=== PATIENT | female | born 1930 | race Caucasian/White ===

== ENCOUNTER → 2018-08-23 | Outpatient (CLI) | payer MEDICARE ==
[~2018-08-23] MED LIST: AEC81 PO; ATOR40TA69 PO; CHOL100040 PO; DOXE3TAB3 PO; ESOM20CA39 PO; LORA1TAB3 PO; METF-446 PO; METO-408 PO; MULT-1103 PO; PARO40TA72 PO; QUET50TA14 PO; VALS1TAB75 PO; WARF-57 PO; [UNRECOGNIZED DRUG - OTHER] PO
== END | disposition home or self-care (01) ==
LOC: SHCH 12:47
PROVIDERS: ATTEND Internal Medicine Cardiovascular Disease
DX: I35.0 Nonrheumatic aortic (valve) stenosis (principal); R01.1 Cardiac murmur, unspecified; Z95.1 Presence of aortocoronary bypass graft
CPT/HCPCS: 93306

== ENCOUNTER → 2018-08-29 | Outpatient (CLI) | payer MEDICARE | END | disposition home or self-care (01) | LOC: SHCH 14:29 | PROVIDERS: ATTEND Internal Medicine Cardiovascular Disease | DX: I65.23 Occlusion and stenosis of bilateral carotid arteries (principal); I25.10 Atherosclerotic heart disease of native coronary artery without angina pectoris | CPT/HCPCS: 93880 ==

== ENCOUNTER → 2018-08-31 | Outpatient (CLI) | payer MEDICARE | END | disposition home or self-care (01) | LOC: SLP 20:36 | PROVIDERS: ATTEND Internal Medicine Cardiovascular Disease | DX: G47.33 Obstructive sleep apnea (adult) (pediatric) (principal); G47.9 Sleep disorder, unspecified; I10 Essential (primary) hypertension; R51 Headache; E11.9 Type 2 diabetes mellitus without complications; F41.9 Anxiety disorder, unspecified; E55.9 Vitamin D deficiency, unspecified; R07.9 Chest pain, unspecified | CPT/HCPCS: 95810 ==

== ENCOUNTER 2018-09-03 17:58 | Emergency (ER) | payer MEDICARE ==
[2018-09-03] MEDS ORDERED: IOHEXOL-350 75 ML VIAL IV ONE (18:26)
[2018-09-03] MEDS ORDERED: ONDANSETRON HCL 4 MG/2 ML VIAL ONE (18:29)
[2018-09-03] MEDS ORDERED: MORPHINE SULFATE 4 MG/1ML SYG ONE ×2 (18:30→20:11)
[2018-09-03 18:47] LABS: BASOPHILS % (AUTO) 0.6 % (0.0-5.0); EOSINOPHILS % (AUTO) 3.7 % (0.0-8.0); HEMATOCRIT 37.7 % (36-48); LYMPHOCYTES % (AUTO) 14.2 % (21.0-51.0); MEAN CORPUSCULAR HEMOGLOBIN 28.9 pg (27.0-33.0); MEAN CORPUSCULAR HGB CONC 32.8 g/dL (32.0-36.0); MEAN CORPUSCULAR VOLUME 88.1 fL (79-99); MONOCYTES % (AUTO) 9.9 % (3.0-13.0); NEUTROPHILS % (AUTO) 71.6 % (40.0-77.0); NUCLEATED RED BLOOD CELLS 0.1 % (0.0-0.19); PLATELET COUNT (AUTO) 249 K/uL (130-400); RED BLOOD CELL COUNT(AUTO) 4.28 MIL/uL (4.00-5.50); RED CELL DISTRIBUTION WIDTH 13.1 % (11.0-15.5); WHITE BLOOD COUNT (AUTO) 9.4 K/uL (4.8-10.8)
[2018-09-03 18:49] LABS: CREATININE 2.2 mg/dL (0.5-1.5); POTASSIUM 5.3 mmol/L (3.5-5.1)
[2018-09-03 18:53] LABS: ALBUMIN 3.5 g/dL (3.5-5.0); BILIRUBIN,TOTAL 0.4 mg/dL (0.2-1.0); TOTAL PROTEIN, SERUM 7.5 g/dL (6.0-8.3)
[2018-09-03] MEDS ORDERED: SODIUM CHLORIDE 0.9% 1000ML 1,000 ML IV ONE (19:18)
[2018-09-03] MEDS ORDERED: KETOROLAC TROMETHAMINE 30MG/ML ONE (20:10)
== END 2018-09-03 20:49 | disposition home or self-care (01) ==
LOC: EDH 17:58
DX: K85.90 Acute pancreatitis without necrosis or infection, unspecified (principal); N28.1 Cyst of kidney, acquired; N28.9 Disorder of kidney and ureter, unspecified; E86.0 Dehydration; E78.00 Pure hypercholesterolemia, unspecified; I10 Essential (primary) hypertension; I25.10 Atherosclerotic heart disease of native coronary artery without angina pectoris; Z88.6 Allergy status to analgesic agent; Z98.890 Other specified postprocedural states
CPT/HCPCS: 36415; 74176; 80053; 83690; 85025; 96361; 96374; 96375; 96376; 99284; J2270 ×2; J2405; J7030; J1885; Q9967

== ENCOUNTER → 2018-09-15 | Outpatient (CLI) | payer MEDICARE | END | disposition home or self-care (01) | LOC: RAH 09-14 09:34 | PROVIDERS: ATTEND Internal Medicine | DX: N28.1 Cyst of kidney, acquired (principal) | CPT/HCPCS: 76700 ==

== ENCOUNTER → 2018-10-02 | Outpatient (CLI) | payer MEDICARE | END | disposition home or self-care (01) | LOC: SLP 20:30 | PROVIDERS: ATTEND Internal Medicine Cardiovascular Disease | DX: G47.33 Obstructive sleep apnea (adult) (pediatric) (principal); I10 Essential (primary) hypertension; E11.9 Type 2 diabetes mellitus without complications; F41.9 Anxiety disorder, unspecified; R53.83 Other fatigue; M25.549 Pain in joints of unspecified hand | CPT/HCPCS: 95811 ==

== ENCOUNTER → 2018-11-08 | Outpatient (CLI) | payer MEDICARE | END | disposition home or self-care (01) | LOC: RAH 11:17 | PROVIDERS: ATTEND Internal Medicine Cardiovascular Disease | CPT/HCPCS: 72141 ==

== ENCOUNTER → 2019-08-28 | Outpatient (CLI) | payer MEDICARE ==
[~2019-08-28] MED LIST changes: -QUET50TA14 PO; +QUET50TA15 PO
== END | disposition home or self-care (01) ==
LOC: SHCH 10:00
PROVIDERS: ATTEND Internal Medicine Cardiovascular Disease
DX: I08.3 Combined rheumatic disorders of mitral, aortic and tricuspid valves (principal); I27.20 Pulmonary hypertension, unspecified; R01.1 Cardiac murmur, unspecified; R09.89 Other specified symptoms and signs involving the circulatory and respiratory systems; Z95.1 Presence of aortocoronary bypass graft
CPT/HCPCS: 93306; 93880

== ENCOUNTER 2020-02-19 15:34 | Observation (INO) | payer MEDICARE ==
[2020-02-18 20:30] VITALS: BP 146/60
[~2020-02-19] VITALS: Ht 157.5 cm; Wt 62.2 kg
[~2020-02-19 15:34] MED LIST changes: -VALS1TAB75 PO; +VALS1TAB76 PO
[2020-02-19] MEDS ORDERED: DILTIAZEM HCL 5 MG/ML 10 ML VIAL IV ONE (16:07)
[2020-02-19 16:09] LABS: EOSINOPHILS % (AUTO) 6.7 % (0.0-8.0); HEMATOCRIT 24.9 % (36-48); LYMPHOCYTES % (AUTO) 20.4 % (21.0-51.0); MEAN CORPUSCULAR HEMOGLOBIN 24.2 pg (27.0-33.0); MEAN CORPUSCULAR HGB CONC 31.3 g/dL (32.0-36.0); MEAN CORPUSCULAR VOLUME 77.3 fL (79-99); MONOCYTES % (AUTO) 11.7 % (3.0-13.0); NEUTROPHILS % (AUTO) 59.9 % (40.0-77.0); PLATELET COUNT (AUTO) 426 K/uL (130-400); RED BLOOD CELL COUNT(AUTO) 3.22 MIL/uL (4.00-5.50); RED CELL DISTRIBUTION WIDTH 13.7 % (11.0-15.5); WHITE BLOOD COUNT (AUTO) 8.7 K/uL (4.8-10.8)
[2020-02-19 16:19] LABS: POTASSIUM 5.3 mmol/L (3.5-5.1)
[2020-02-19 16:22] LABS: INR 1.58 (0.85-1.15); PARTIAL THROMBOPLASTIN TIME 64.1 SEC (26.3-35.5); PROTHROMBIN TIME 16.8 SEC (9.6-11.6)
[2020-02-19 16:23] LABS: ALBUMIN 3.3 g/dL (3.5-5.0); BILIRUBIN,TOTAL 0.3 mg/dL (0.2-1.0); TOTAL PROTEIN, SERUM 7.6 g/dL (6.0-8.3)
[2020-02-19] MEDS ORDERED: ASPIRIN 325 MG TABLET ONE (16:24)
[2020-02-19] MEDS ORDERED: DILTIAZEM HCL 125 MG/25 ML VIAL IV ONE (16:30)
[2020-02-19] MEDS ORDERED: SODIUM CHLORIDE 0.9% 100 ML IV ONE (16:31)
[2020-02-19 16:45] LABS: RAPID GROUP A STREP NEGATIVE (NEGATIVE)
[2020-02-19] MEDS ORDERED: 1/2 NORMAL SALINE 1,000 ML IV ONE ×2 (17:38→23:36)
[2020-02-19] MEDS: IRON SUCROSE COMPLEX 200 MG in SODIUM CHLORIDE 0.9% 100 ML IVP SCH (17:45)
[2020-02-19] MEDS ORDERED: IRON SUCROSE COMPLEX 100 MG in SODIUM CHLORIDE 0.9% 100 ML IVP SCH (18:00)
[2020-02-19] MEDS ORDERED: METF-446 PO (22:24)
[2020-02-19] MEDS ORDERED: QUET50TA79 PO (22:24)
[2020-02-19] MEDS ORDERED: RIVA20TA PO (22:24)
[2020-02-19] MEDS ORDERED: EMPA25TA PO (22:24)
[2020-02-19] MEDS ORDERED: ANTI1CAP5 PO (22:24)
[2020-02-19] MEDS ORDERED: METR45GE TP (22:24)
[2020-02-19] MEDS ORDERED: VALS1TAB76 PO (22:24)
[2020-02-19] MEDS ORDERED: DOXE6TAB3 PO (22:24)
[2020-02-19] MEDS ORDERED: METRONIDAZOLE 45 GM TP SCH (22:30)
[2020-02-20] VITALS (7 sets, daily range): BP systolic 104–156; BP diastolic 52–76
[2020-02-20 04:24] LABS: HEMOGLOBIN A1C 6.8 % (4.0-6.0)
[2020-02-20 04:33] LABS: BILIRUBIN,TOTAL 0.3 mg/dL (0.2-1.0); CREATININE 1.7 mg/dL (0.5-1.5); TOTAL PROTEIN, SERUM 6.7 g/dL (6.0-8.3)
[2020-02-20 04:48] LABS: HEMATOCRIT 21.9 % (36-48); MEAN CORPUSCULAR HEMOGLOBIN 23.6 pg (27.0-33.0); MEAN CORPUSCULAR HGB CONC 30.6 g/dL (32.0-36.0); MEAN CORPUSCULAR VOLUME 77.1 fL (79-99); RED BLOOD CELL COUNT(AUTO) 2.84 MIL/uL (4.00-5.50); RED CELL DISTRIBUTION WIDTH 13.8 % (11.0-15.5)
--- NOTE | 2020-02-20 06:00 | NUR ---
Dr. Chapin paged regarding H and H results. 0630- no return call/dr. chapin here, appraised of lab result. orders received.
[2020-02-20] MEDS: PANTOPRAZOLE SODIUM 40 MG TABLET.DR PO SCH (07:01)
[2020-02-20 07:10] LABS: RETICULOCYTE % (AUTO) 1.56 % (0.42-2.23)
[2020-02-20] MEDS: INSULIN HUMULIN R 100 UNIT/ML 3ML SQ SCH ×4 (07:30→21:00)
[2020-02-20] MEDS: METOPROLOL SUCCINATE 50 MG TAB.SR.24H PO SCH ×2 (08:14→20:31)
[2020-02-20] MEDS: MULTIVITAMIN WITH MINERALS TABLET PO SCH (08:14)
--- NOTE | 2020-02-20 08:37 | NUR ---
Assignment changed, report given to SE Amor
[2020-02-20] MEDS ORDERED: [UNRECOGNIZED DRUG - OTHER] PO SCH (09:00)
[2020-02-20] MEDS ORDERED: QUETIAPINE FUMARATE 50 MG PO SCH (09:00)
[2020-02-20] MEDS ORDERED: HYDROCHLOROTHIAZIDE PO SCH (09:00)
[2020-02-20] MEDS ORDERED: EMPAGLIFLOZIN 25 MG PO SCH (09:00)
[2020-02-20] MEDS ORDERED: NON-FORMULARY MEDICATION 1 EACH (Metformin HCl 1,000 MG) PO SCH (09:00)
[2020-02-20] MEDS ORDERED: DOXEPIN HCL 6 MG PO SCH (09:00)
[2020-02-20] MEDS ORDERED: VALSARTAN PO SCH (09:00)
[2020-02-20] MEDS ORDERED: SODIUM CHLORIDE 0.9% 250 ML IV ONE (09:02)
--- NOTE | 2020-02-20 11:23 | NUR ---
DCP CM met with pt discussed dc plans. Pt is independent prior to admission, lives at home alone. Pt has shower chair, cane, walker, provider 5hrs/day. Denies any other equipments/services. Pt verbalized she used to have cpap but hardly uses it, so it was discontinued. Had [employer] in the past but was discharged. Feels safe to go back home, still drives, provider able to assists with transportation and needs as necessary. DC plan to home once stable. Addendum: 02/20/20 at 1126 by MADDISON DAMIAN LVN CM Amended: Links added.
--- NOTE | 2020-02-20 12:36 | NUR ---
1215 patient given BPCI Letter.
[2020-02-20] MEDS ORDERED: RIVAROXABAN 20 MG TABLET PO SCH (17:00)
[2020-02-20] MEDS: IRON SUCROSE COMPLEX 200 MG in SODIUM CHLORIDE 0.9% 100 ML IVP SCH (17:59)
[2020-02-20] MEDS ORDERED: PAROXETINE HCL 20 MG TABLET PO SCH (21:00)
[2020-02-20] MEDS ORDERED: ATORVASTATIN CALCIUM 40 MG TABLET PO SCH (21:00)
[2020-02-21 03:45] VITALS: BP 139/60
[2020-02-21] MEDS: INSULIN HUMULIN R 100 UNIT/ML 3ML SQ SCH (06:54)
[2020-02-21] MEDS: PANTOPRAZOLE SODIUM 40 MG TABLET.DR PO SCH (07:18)
[2020-02-21 07:35] VITALS: BP 151/82
[2020-02-21] MEDS: METOPROLOL SUCCINATE 50 MG TAB.SR.24H PO SCH (09:00)
[2020-02-21] MEDS: MULTIVITAMIN WITH MINERALS TABLET PO SCH (09:00)
[2020-02-21 11:34] VITALS: BP 149/69
== END 2020-02-21 13:33 | disposition home or self-care (01) ==
LOC: EDH 15:34 → EDHIP 17:00 → 4CH 21:05
PROVIDERS: ADMIT Internal Medicine; ATTEND Internal Medicine
DX: I48.0 Paroxysmal atrial fibrillation (principal); I13.0 Hypertensive heart and chronic kidney disease with heart failure and stage 1 through stage 4 chronic kidney disease, or unspecified chronic kidney disease; I50.9 Heart failure, unspecified; N18.9 Chronic kidney disease, unspecified; E11.22 Type 2 diabetes mellitus with diabetic chronic kidney disease; E78.5 Hyperlipidemia, unspecified; I25.10 Atherosclerotic heart disease of native coronary artery without angina pectoris; I25.2 Old myocardial infarction; D50.9 Iron deficiency anemia, unspecified; E03.9 Hypothyroidism, unspecified; F03.90 Unspecified dementia, unspecified severity, without behavioral disturbance, psychotic disturbance, mood disturbance, and anxiety; Z79.01 Long term (current) use of anticoagulants; Z95.1 Presence of aortocoronary bypass graft
CPT/HCPCS: 36415 ×2; 36430; 71045; 80053 ×2; 82270; 82948 ×6; 83036; 83880; 84443; 84484; 85025; 85027; 85045; 85610; 85730; 86850; 86900; 86901; 86922 ×2; 87804 ×2; 87880; 93005; 96361 ×2; 96365; 99291; G0378 ×8; J1756; J3490 ×2; J7050; P9016

== ENCOUNTER → 2020-05-20 | Outpatient (CLI) | payer MEDICARE ==
[~2020-05-20] MED LIST changes: -AEC81 PO; +ANTI1CAP5 PO; -CHOL100040 PO; -DOXE3TAB3 PO; +DOXE6TAB3 PO; +EMPA25TA PO; -LORA1TAB3 PO; +METR45GE TP; -QUET50TA15 PO; +QUET50TA79 PO; +RIVA20TA PO; -WARF-57 PO; -[UNRECOGNIZED DRUG - OTHER] PO
== END | disposition home or self-care (01) ==
LOC: OIH 10:49
PROVIDERS: ATTEND Internal Medicine
DX: R06.02 Shortness of breath (principal)
CPT/HCPCS: 71046

== ENCOUNTER → 2020-10-21 | Outpatient (CLI) | payer MEDICARE | END | disposition home or self-care (01) | LOC: SHCH 10:41 | PROVIDERS: ATTEND Internal Medicine Cardiovascular Disease | DX: I70.298 Other atherosclerosis of native arteries of extremities, other extremity (principal); I10 Essential (primary) hypertension | CPT/HCPCS: 93925 ==

== ENCOUNTER 2020-11-28 12:02 | Observation (INO) | payer MEDICARE ==
[2020-11-28] MEDS ORDERED: METOPROLOL TARTRATE 1 MG/ML 5ML VIAL IV ONE ×3 (12:27→13:11)
[2020-11-28 12:33] LABS: BASOPHILS % (AUTO) 0.7 % (0.0-5.0); EOSINOPHILS % (AUTO) 3.6 % (0.0-8.0); HEMATOCRIT 34.6 % (36-48); LYMPHOCYTES % (AUTO) 22.4 % (21.0-51.0); MEAN CORPUSCULAR HEMOGLOBIN 27.7 pg (27.0-33.0); MEAN CORPUSCULAR HGB CONC 32.4 g/dL (32.0-36.0); MEAN CORPUSCULAR VOLUME 85.6 fL (79-99); MONOCYTES % (AUTO) 10.1 % (3.0-13.0); PLATELET COUNT (AUTO) 245 K/uL (130-400); RED BLOOD CELL COUNT(AUTO) 4.04 MIL/uL (4.00-5.50); RED CELL DISTRIBUTION WIDTH 14.4 % (11.0-15.5); WHITE BLOOD COUNT (AUTO) 8.1 K/uL (4.8-10.8)
[2020-11-28] MEDS ORDERED: DILTIAZEM 125MG+100 ML NS 125 ML IV SCH (12:45)
[2020-11-28] MEDS ORDERED: 0.9%NACL 10ML VIAL IVP PRN (12:45)
[2020-11-28 12:51] LABS: INR 1.83 (0.85-1.15); PROTHROMBIN TIME 18.9 SEC (9.6-11.6)
[2020-11-28 12:52] LABS: PARTIAL THROMBOPLASTIN TIME 63.2 SEC (26.3-35.5)
[2020-11-28 12:59] LABS: CREATININE 1.9 mg/dL (0.5-1.5); POTASSIUM 5.1 mmol/L (3.5-5.1)
[2020-11-28 13:03] LABS: ALBUMIN 3.6 g/dL (3.5-5.0); BILIRUBIN,TOTAL 0.5 mg/dL (0.2-1.0); TOTAL PROTEIN, SERUM 7.5 g/dL (6.0-8.3)
[2020-11-28 16:19] VITALS: BP 124/77
[2020-11-28 19:00] VITALS: BP 146/57
[2020-11-28] MEDS ORDERED: DILTIAZEM 25MG INJ IVP PRN (19:00)
[2020-11-28] MEDS ORDERED: PHARMACY COMMUNICATION MISC SCH (19:00)
[2020-11-28] MEDS ORDERED: DILTIAZEM 125 MG/25 ML INJ 125 MG in 0.9%NACL 100ML 100 ML IV PRN (19:00)
[2020-11-28] MEDS: INSULIN HUMULIN R 100 UNIT/ML 3ML SQ SCH (21:00)
[2020-11-29] VITALS: BP 167/61
[2020-11-29 04:00] VITALS: BP 170/59
[2020-11-29 05:57] LABS: BASOPHILS % (AUTO) 0.8 % (0.0-5.0); HEMATOCRIT 33.2 % (36-48); MEAN CORPUSCULAR HEMOGLOBIN 27.5 pg (27.0-33.0); MEAN CORPUSCULAR HGB CONC 31.9 g/dL (32.0-36.0); MEAN CORPUSCULAR VOLUME 86.2 fL (79-99); MONOCYTES % (AUTO) 9.9 % (3.0-13.0); NEUTROPHILS % (AUTO) 55.2 % (40.0-77.0); PLATELET COUNT (AUTO) 241 K/uL (130-400); RED BLOOD CELL COUNT(AUTO) 3.85 MIL/uL (4.00-5.50); RED CELL DISTRIBUTION WIDTH 14.4 % (11.0-15.5); WHITE BLOOD COUNT (AUTO) 7.7 K/uL (4.8-10.8)
[2020-11-29 06:22] LABS: ALBUMIN 3.5 g/dL (3.5-5.0); BILIRUBIN,TOTAL 0.5 mg/dL (0.2-1.0); POTASSIUM 4.1 mmol/L (3.5-5.1); TOTAL PROTEIN, SERUM 7.2 g/dL (6.0-8.3)
[2020-11-29] MEDS: INSULIN HUMULIN R 100 UNIT/ML 3ML SQ SCH ×2 (06:34→11:30)
[2020-11-29 08:00] VITALS: BP 154/75
[2020-11-29] MEDS ORDERED: METOPROLOL TARTRATE 25 MG TAB PO SCH (09:00)
[2020-11-29] MEDS ORDERED: DRON400T7 PO (10:01)
[2020-11-29] MEDS ORDERED: DRONEDARONE HYDROCHLORIDE 400 MG TABLET PO SCH (10:02)
[2020-11-29 11:39] VITALS: BP 166/84
== END 2020-11-29 13:44 | disposition home or self-care (01) ==
LOC: EDH 12:02 → EDHIP 12:03 → INTOOBSV 12:03 → 4AH 15:28
PROVIDERS: ADMIT Internal Medicine; ATTEND Internal Medicine
DX: I48.20 Chronic atrial fibrillation, unspecified (principal); E11.22 Type 2 diabetes mellitus with diabetic chronic kidney disease; I12.9 Hypertensive chronic kidney disease with stage 1 through stage 4 chronic kidney disease, or unspecified chronic kidney disease; N18.30 Chronic kidney disease, stage 3 unspecified; I25.10 Atherosclerotic heart disease of native coronary artery without angina pectoris; G47.30 Sleep apnea, unspecified; F31.9 Bipolar disorder, unspecified; E78.00 Pure hypercholesterolemia, unspecified; G89.29 Other chronic pain; R07.89 Other chest pain; I35.0 Nonrheumatic aortic (valve) stenosis; Z95.1 Presence of aortocoronary bypass graft; Z79.01 Long term (current) use of anticoagulants; Z79.84 Long term (current) use of oral hypoglycemic drugs; Z79.899 Other long term (current) drug therapy; Z88.8 Allergy status to other drugs, medicaments and biological substances
CPT/HCPCS: 36415 ×2; 71045; 80053 ×2; 82550 ×2; 82948 ×4; 84484 ×3; 85025 ×2; 85610; 85730; 93005 ×2; 93306; 93356; 99285; G0378 ×26; J3490 ×4

== ENCOUNTER → 2021-01-16 | Outpatient (CLI) | payer MEDICARE ==
[~2021-01-16] MED LIST changes: +DRON400T7 PO
== END | disposition home or self-care (01) ==
LOC: RAH 11:29
PROVIDERS: ATTEND Internal Medicine
DX: N18.4 Chronic kidney disease, stage 4 (severe) (principal); N28.1 Cyst of kidney, acquired
CPT/HCPCS: 76770

== ENCOUNTER → 2021-10-26 | Outpatient (CLI) | payer MEDICARE | END | disposition home or self-care (01) | LOC: SHCH 10:00 | PROVIDERS: ATTEND Internal Medicine Cardiovascular Disease | DX: I08.3 Combined rheumatic disorders of mitral, aortic and tricuspid valves (principal); I27.20 Pulmonary hypertension, unspecified | CPT/HCPCS: 93306 ==

== ENCOUNTER 2021-11-07 12:47 | Emergency (ER) | payer MEDICARE ==
[~2021-11-07] VITALS: Ht 152.4 cm; Wt 59.0 kg
[2021-11-07] MEDS ORDERED: FAMC500T8 PO (13:53)
[2021-11-07] MEDS ORDERED: GABA-529 PO (13:53)
[2021-11-07] MEDS ORDERED: HYDROCODONE/ACETAMINOPHEN 5/325 MG TAB PO ONE (14:00)
[2021-11-07 14:26] VITALS: BP 126/78
== END 2021-11-07 14:32 | disposition home or self-care (01) ==
LOC: EDH 12:47
DX: B02.8 Zoster with other complications (principal); R11.2 Nausea with vomiting, unspecified; R19.7 Diarrhea, unspecified; I12.9 Hypertensive chronic kidney disease with stage 1 through stage 4 chronic kidney disease, or unspecified chronic kidney disease; N18.9 Chronic kidney disease, unspecified; F03.90 Unspecified dementia, unspecified severity, without behavioral disturbance, psychotic disturbance, mood disturbance, and anxiety; E78.00 Pure hypercholesterolemia, unspecified; Z98.890 Other specified postprocedural states; Z79.84 Long term (current) use of oral hypoglycemic drugs; Z79.899 Other long term (current) drug therapy; Z88.8 Allergy status to other drugs, medicaments and biological substances